=== PATIENT | female | born 1970 | race Caucasian/White ===

== ENCOUNTER 2020-12-17 12:59 | Observation (INO) | payer OTHER ==
[2020-12-17 14:04] LABS: BASO % 0.7 % (0-2.0); EOS % 4.3 % (0-4.5); HEMATOCRIT 26.1 % (32.4-45.2); HEMOGLOBIN 7.9 GM/dL (10.7-15.3); LYMPH % 40.1 % (8-40); MCHC 30.2 g/dl (32.0-36.0); MEAN CELL VOLUME 61.9 fl (80-96); MEAN PLT VOLUME 6.4 fl (7.5-11.1); MONO % 6.5 % (3.8-10.2); NEUT % 48.4 % (42.8-82.8); PLATELET COUNT 510 10^3/uL (134-434); RBC 4.21 M/mm3 (3.60-5.2); RDW 18.6 % (11.6-15.6); WHITE BLOOD COUNT 7.5 K/mm3 (4.0-10.0)
[2020-12-17 14:06] LABS: MCH 18.7 pg (25.7-33.7)
[2020-12-17 14:14] LABS: INR 0.99 (0.83-1.09)
[2020-12-17 14:17] LABS: ACTIVATED PTT 26.6 SECONDS (25.2-36.5)
[2020-12-17 14:32] LABS: CALCIUM 9.3 mg/dL (8.5-10.1)
[2020-12-17 14:33] LABS: ALBUMIN 3.9 g/dl (3.4-5.0); MAGNESIUM 2.2 mg/dL (1.8-2.4)
[2020-12-17 14:35] LABS: BLOOD UREA NITROGEN 13.3 mg/dL (7-18)
[2020-12-17 14:36] LABS: CREATININE 0.7 mg/dL (0.55-1.3)
[2020-12-17 14:38] LABS: BILIRUBIN,TOTAL 0.4 mg/dL (0.2-1); TOT PROT 6.6 g/dl (6.4-8.2)
[2020-12-17 14:41] LABS: ANISOCYTOSIS 1+; MACROCYTOSIS 0; OVALOCYTE 1+; PLATELET ESTIMATE INCREASED
[2020-12-17] MEDS ORDERED: SODIUM CHLORIDE 500 ML IV STA (17:32)
[2020-12-18] MEDS ORDERED: ACETAMINOPHEN 325 MG TABLET (FP) PO PRN (04:18)
[2020-12-18 07:35] VITALS: BMI 34.8
[2020-12-18 09:04] VITALS: BP 131/82; PULSE 73; TEMP 98
[2020-12-18] MEDS ORDERED: MULTIVITAMINS (DAILY MVI) TABLET (FP) PO SCH (10:00)
[2020-12-18] MEDS ORDERED: CYANOCOBALAMIN 1,000 MCG TABLET (FP) PO SCH (10:00)
[2020-12-18 10:39] LABS: BASO % 0.7 % (0-2.0); EOS % 4.2 % (0-4.5); HEMATOCRIT 31.4 % (32.4-45.2); HEMOGLOBIN 9.8 GM/dL (10.7-15.3); LYMPH % 28.6 % (8-40); MCH 20.4 pg (25.7-33.7); MCHC 31.3 g/dl (32.0-36.0); MEAN CELL VOLUME 65.3 fl (80-96); MEAN PLT VOLUME 6.8 fl (7.5-11.1); MONO % 7.2 % (3.8-10.2); NEUT % 59.3 % (42.8-82.8); PLATELET COUNT 502 10^3/uL (134-434); RDW 21.6 % (11.6-15.6)
[2020-12-18 11:11] LABS: CALCIUM 9.5 mg/dL (8.5-10.1)
[2020-12-18 11:12] LABS: BLOOD UREA NITROGEN 12.7 mg/dL (7-18)
[2020-12-18 11:15] LABS: CREATININE 0.6 mg/dL (0.55-1.3)
== END 2020-12-18 09:05 | disposition home or self-care (01) ==
LOC: JER 12:59 → JERBED 17:07 → J5S 23:19
PROVIDERS: ADMIT Internal Medicine; ATTEND Family Medicine
PROC: 30233N1 Transfusion of Nonautologous Red Blood Cells into Peripheral Vein, Percutaneous Approach (ICD-10-PCS; principal; 2020-12-17)
PROC: 3E0337Z Introduction of Electrolytic and Water Balance Substance into Peripheral Vein, Percutaneous Approach (ICD-10-PCS; 2020-12-17)
DX: D64.9 Anemia, unspecified (principal); Z88.1 Allergy status to other antibiotic agents; E66.9 Obesity, unspecified; Z68.34 Body mass index [BMI] 34.0-34.9, adult; Z20.822 Contact with and (suspected) exposure to COVID-19
CPT/HCPCS: 36415; 36430; 36511; 80048; 80053; 82272; 83735; 85025; 85610; 85730; 86850; 86900; 86901; 86922; 93005; 93010; 96360; 99285-25; C9803; G0378; P9038; P9058; U0003; U0005

== ENCOUNTER 2020-12-28 10:45 | Day surgery (SDC) | payer OTHER ==
[2020-12-28] MEDS ORDERED: FERRIC CARBOXYMALTOSE 750 MG in SODIUM CHLORIDE 250 ML IVPB ONE (13:00)
[2020-12-28 13:12] VITALS: BP 125/72; PULSE 76; TEMP 98.8
== END 2020-12-28 16:53 | disposition home or self-care (01) ==
LOC: FINFUSION 10:45 → FM/S 10:50 → FINFUSION 16:53
PROVIDERS: ATTEND Family Medicine
PROC: 3E033GC Introduction of Other Therapeutic Substance into Peripheral Vein, Percutaneous Approach (ICD-10-PCS; principal; 2020-12-28)
DX: D50.9 Iron deficiency anemia, unspecified (principal)
CPT/HCPCS: 81025; 96365; J1439

== ENCOUNTER 2022-02-20 13:36 | Day surgery (SDC) | payer OTHER ==
[2022-02-20] MEDS ORDERED: FERRIC CARBOXYMALTOSE 750 MG in SODIUM CHLORIDE 250 ML IVPB ONE (14:15)
[2022-02-20 14:17] VITALS: RESP 18; TEMP 98.3
[2022-02-20 15:27] VITALS: BP 132/74; PULSE 66
== END 2022-02-20 15:30 | disposition home or self-care (01) ==
LOC: FINFUSION 13:36 → FM/S 13:37 → FINFUSION 15:30
PROVIDERS: ATTEND Family Medicine
PROC: 3E033GC Introduction of Other Therapeutic Substance into Peripheral Vein, Percutaneous Approach (ICD-10-PCS; principal; 2022-02-20)
DX: D50.9 Iron deficiency anemia, unspecified (principal)
CPT/HCPCS: 81025; 96365; J1439

== ENCOUNTER 2022-02-27 13:51 | Day surgery (SDC) | payer OTHER ==
[2022-02-27 14:22] VITALS: RESP 18; TEMP 98.7
[2022-02-27] MEDS ORDERED: FERRIC CARBOXYMALTOSE 750 MG in SODIUM CHLORIDE 250 ML IVPB ONE (14:30)
[2022-02-27 15:35] VITALS: BP 124/65; PULSE 86
== END 2022-02-27 15:35 | disposition home or self-care (01) ==
LOC: FINFUSION 13:51 → FM/S 13:53 → FINFUSION 15:35
PROVIDERS: ATTEND Family Medicine
PROC: 3E033GC Introduction of Other Therapeutic Substance into Peripheral Vein, Percutaneous Approach (ICD-10-PCS; principal; 2022-02-27)
DX: D50.9 Iron deficiency anemia, unspecified (principal)
CPT/HCPCS: 81025; 96365; J1439